=== PATIENT | female | born 1990 | race African-American/Black ===

== ENCOUNTER 2020-04-10 07:00 | Outpatient (CLI) | payer OTHER ==
[2020-04-10 21:18] LABS: TRICHOMONAS VAGINALIS DNA NEGATIVE (NEGATIVE)
== END 2020-04-10 23:59 | disposition home or self-care (01) ==
LOC: LAB.R 07:00
PROVIDERS: ATTEND Obstetrics & Gynecology
DX: Z36.85 Encounter for antenatal screening for Streptococcus B (principal); Z36.89 Encounter for other specified antenatal screening
CPT/HCPCS: 87491; 87591; 87661; 87797

== ENCOUNTER 2020-05-04 18:10 | Inpatient (IN) | payer OTHER ==
[2020-05-04] MEDS ORDERED: LIDOCAINE-MPF 1% 30 ML VIAL ID PRN (18:23)
[2020-05-04] MEDS ORDERED: OXYTOCIN 10 UNIT/ML VIAL IM PRN (18:23)
[2020-05-04] MEDS ORDERED: miSOPROStoL 200 MCG TABLET BC PRN (18:23)
[2020-05-04] MEDS ORDERED: CARBOPROST TROMETHAMINE 250 MCG/ML AMP IM PRN (18:23)
[2020-05-04] MEDS ORDERED: SODIUM CHLORIDE FLUSH 0.9% 10 ML SYRINGE IVP PRN (18:23)
[2020-05-04] MEDS ORDERED: METHYLERGONOVINE 0.2 MG/ML VIAL IM PRN (18:23)
[2020-05-04] MEDS ORDERED: TRANEXAMIC ACID 1,000 MG in SODIUM CHLORIDE 0.9% 100ML 100 ML IV PRN (18:23)
[2020-05-04] MEDS ORDERED: OXYTOCIN/SODIUM CHLORIDE 500 ML IV PRN (18:23)
[2020-05-04 19:38] LABS: BASOPHILS % (AUTO) 0.4 %; EOSINOPHILS # (AUTO) 0.2 10^3/uL (0.0-0.7); EOSINOPHILS % (AUTO) 1.6 %; HGB - HEMOGLOBIN 9.2 g/dL (12.0-16.0); LYMPHOCYTES # (AUTO) 2.7 10^3/uL (1.5-3.5); LYMPHOCYTES % (AUTO) 28.7 %; MEAN CORPUSCULAR HEMOGLOBIN 26.1 pg (27.0-31.0); MEAN CORPUSCULAR HGB CONC 30.6 g/dL (32.0-36.0); MEAN CORPUSCULAR VOLUME 85.3 fL (81.0-99.0); MEAN PLATELET VOLUME 9.7 fL (7.9-10.8); MONOCYTES # (AUTO) 0.5 10^3/uL (0.0-1.0); MONOCYTES % (AUTO) 4.9 %; NEUTROPHILS # (AUTO) 5.9 10^3/uL (1.5-6.6); PLT - PLATELET COUNT 250 10^3/uL (130-450); RED BLOOD COUNT 3.53 10^6/uL (4.20-5.40); RED CELL DISTRIBUTION WIDTH 14.2 % (12.0-15.0); WHITE BLOOD COUNT 9.2 x10^3/uL (4.8-10.8)
--- NOTE | 2020-05-04 19:46 | PREOP HISTORY & PHYSICAL ---
DATE OF SERVICE: 05/04/2020 Physician: Griffin Felix MD IDENTIFICATION: Patient is a 29-year-old G3, P2 female who is currently 39 weeks EGA. She has an EDC of 05/11. She started her OB care with us at 35 weeks; prior to this received her health care at [facility]. She presents for cervical ripening and induction of labor. She has a history of having had a shoulder dystocia with 2 of her infants, which resolved with minimal maneuvers such as suprapubic pressure. She describes these as being easily under 1 minute. She is requesting a vaginal delivery. We discussed the risks of shoulder dystocia, which include those, but are not limited to, difficulty delivery with Erb's palsy and neurologic injury as well as possible . She is aware that these are possibilities. LABORATORY DATA: Patient is AB positive. She is rubella immune. She does have some abnormal antibodies. She is negative for STIs. Her GBS culture is negative. 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 She has had a 50 gram Glucola, which is 150. However, her 3-hour GTT was noted to be within normal limits. PAST MEDICAL HISTORY: Patient denies any diabetic, hypertensive or cardiac disease. SURGICAL HISTORY 1. [place] teeth. 2. Tonsillectomy. ALLERGIES: NONE KNOWN. CURRENT MEDICATIONS 1. MiraLax. 2. vitamins. 3. Iron. HABITS: Patient denies use of alcohol, tobacco, or street or addictive drugs. SOCIAL HISTORY: Patient is . PHYSICAL EXAMINATION GENERAL: Patient is a well-developed, well-nourished, black female. She is in no acute distress at this time. VITAL SIGNS: Her vital signs at admission show a blood pressure of 114/78, heart rate 75, temperature is 37.1, respirations are 16. HEENT: Pupils are equal, round. Extraocular muscles are intact. Thyroid is not palpably enlarged. HEART: Regular rate and rhythm without murmurs. LUNGS: Lung morocho are clear without rales or wheezes. ABDOMEN: Corpulent in nature. Her last exam on the showed a fundal height of 42 cm. She had a cervix that was 2 cm, 20% effaced, and high. Patient had an ultrasound, which showed an infant that was at the 62nd percentile. IMPRESSION 1. A 29-year-old G3, P2 female with a history of 2 mild shoulder dystocias, with an ultrasound that shows an infant at the 62nd percentile. 2. Abnormal antibodies. 3. Planned induction of labor. PLAN: We will administer cervical ripening. We will type and cross for 2 units of blood and have been standing by because of her abnormal antibodies. We will also try to avoid any vacuums at time of delivery. TD: 05/04/2020 19:34 DOMINIC
[2020-05-04] MEDS: miSOPROStoL 100 MCG TABLET BC SCH (20:27)
[2020-05-05] MEDS ORDERED: SODIUM CHLORIDE FLUSH 0.9% 10 ML SYRINGE IVP SCH (01:00)
[2020-05-05] MEDS: LACTATED RINGERS 1,000 ML IV SCH ×2 (02:40→19:00)
--- NOTE | 2020-05-05 09:30 | PROVIDER PROGRESS NOTE ---
Labor Progress Note - Uterine Monitoring Contraction Frequency (min/apart): NONE - Monitoring Heart Rate Baseline: 125 Heart Rate Variability: positive: Moderate (6-25 bmp) Accelerations: positive: Present, 15x15 Decelerations: positive: None Strip Review: positive: Category I - Vaginal Exam Dilation (in cm): 2 Effacement (%): 30% Station: -3 Cervical Position: Posterior - Labor Progress Note Labor Progress Note/Additional Text: Last PM because of an abmormal Ab screen Mispprostal was with held until blood became available. We now have 4 units Crossed and a further 2 being crossed. Pt reacted to 25 of Miso with contractions will restart at 25 .
[2020-05-05] MEDS: miSOPROStoL 100 MCG TABLET BC SCH (09:33)
[2020-05-05] MEDS ORDERED: miSOPROStoL 100 MCG TABLET BC SCH (12:00)
[2020-05-05] MEDS ORDERED: ROPIVACAINE 0.2% 200 MG/100 ML BAG EP ONE (19:00)
[2020-05-05] MEDS ORDERED: OXYTOCIN/SODIUM CHLORIDE 500 ML IV SCH (20:00)
--- NOTE | 2020-05-05 20:00 | PROVIDER PROGRESS NOTE ---
Labor Progress Note - Monitoring Heart Rate Baseline: 142 Heart Rate Variability: positive: Moderate (6-25 bmp) Accelerations: positive: Present, 10x10 (=/32 wks) Decelerations: positive: None Strip Review: positive: Category I - Vaginal Exam Dilation (in cm): 6 Effacement (%): 80 Station: -3 Cervical Position: Posterior - Labor Progress Note Labor Progress Note/Additional Text: Pt great progress with cook. epidural in place improve station with pitocin AROM when in range.
[2020-05-05] MEDS ORDERED: ePHEDrine 50 MG/ML VIAL IVP PRN (20:04)
[2020-05-05] MEDS ORDERED: NALOXONE 0.4 MG/ML VIAL IVP PRN (20:04)
[2020-05-05] MEDS ORDERED: ONDANSETRON 4 MG/2 ML VIAL IVP PRN (20:04)
[2020-05-05] MEDS ORDERED: NALBUPHINE 10 MG/ML AMP IVP PRN (20:04)
[2020-05-05] MEDS ORDERED: METOCLOPRAMIDE 10 MG/2 ML VIAL IVP PRN (20:04)
[2020-05-05] MEDS ORDERED: LACTATED RINGERS 500 ML IV ONE (20:04)
[2020-05-05] MEDS ORDERED: diphenhydrAMINE INJ 50 MG/ML VIAL IVP PRN (20:04)
[2020-05-05] MEDS ORDERED: ROPIVACAINE 0.2% 200 MG/100 ML BAG EP PRN (20:04)
--- NOTE | 2020-05-05 20:08 | ANESTHESIA ---
Pre-Anesthesia VS, & Labs - Diagnosis labor induction - Procedure labor epidural Vital Signs: Temp Pulse Resp BP Pulse Ox 36.9 C 71 20 120/62 100 05/05/20 09:00 05/05/20 09:00 05/05/20 09:00 05/05/20 09:00 05/05/20 09:00 Height 5 ft 4 in Weight (kg) 127.913 kg - NPO Other (clears from now until delivery) - Is Patient ?: Yes - Lab Results Current Lab Results: Laboratory Tests 05/04/20 21:10: Blood Type Recheck AB POSITIVE 05/04/20 19:20: Blood Type AB POSITIVE, Antibody Screen POSITIVE, Antibody Identification Anti-Leb, FERMIN, IgG Specific NEGATIVE, FERMIN, Polyspecific NEGATIVE, FERMIN, C3d Specific Not Reportable, Crossmatch See Detail 05/04/20 19:20: WBC 9.2, RBC 3.53 L, Hgb 9.2 L, Hct 30.1 L, MCV 85.3, MCH 26.1 L , MCHC 30.6 L, RDW 14.2, Plt Count 250, MPV 9.7, Neut # (Auto) 5.9, Lymph # (Auto) 2.7, Powell # (Auto) 0.5, Eos # (Auto) 0.2, Baso # (Auto) 0.0, Absolute Nucleated RBC 0.00, Nucleated RBC % 0.0 Fish Bones: 05/04/20 19:20 Home Medications and Allergies Active Medications Carboprost Tromethamine (Hemabate) 250 mcg IM Q15M PRN PRN Reason: Step 4: Hemorrhage protocol Stop: 05/09/20 18:34 Oxytocin/Sodium Chloride (Pitocin/Sodium Chloride) 500 mls @ 999 mls/hr IV PRN PRN; Protocol PRN Reason: POST- HEMORR PREVENTION Stop: 05/09/20 18:34 Tranexamic Acid 1,000 mg/ (Sodium Chloride) 110 mls @ 660 mls/hr IV .ONCE PRN PRN Reason: EBL >1200mL and within 3hr Stop: 05/09/20 18:34 Lactated Ringer's (Lr) 1,000 mls @ 100 mls/hr IV .Q10H DEBBIE Last Infusion: 05/05/20 09:27 Dose: Infused Documented by: Oxytocin/Sodium Chloride (Pitocin/Sodium Chloride) 500 mls @ 1 mls/hr IV TITR DEBBIE; Protocol Lidocaine HCl (Xylocaine-Mpf 1% Vial) 30 ml ID .ONCE PRN PRN Reason: PERINEAL REPAIR Stop: 05/09/20 18:34 Methylergonovine Maleate (Methergine Inj) 0.2 mg IM .ONCE PRN PRN Reason: Step 2: Hemorrhage protocol Stop: 05/09/20 18:34 Misoprostol (Cytotec) 800 mcg BC .ONCE PRN PRN Reason: Step 3: Hemorrhage protocol Stop: 05/09/20 18:34 Misoprostol (Cytotec) 50 mcg BC Q4H DEBBIE Last Admin: 05/05/20 13:36 Dose: 50 mcg Documented by: Oxytocin (Pitocin) 10 unit IM .ONCE PRN PRN Reason: Step one: If no IV access Stop: 05/09/20 18:34 Sodium Chloride (Normal Saline Flush 0.9%) 10 ml IVP 0100,0900,1700 DEBBIE Sodium Chloride (Normal Saline Flush 0.9%) 10 ml IVP PRN PRN PRN Reason: NEEDED PER PROVIDER ORDERS Allergies/Adverse Reactions: Allergies Allergy/AdvReac Type Severity Reaction Status Date / Time No Known Drug Allergies Allergy Verified 05/04/20 19:21 Anes History & Medical History - Anesthetic History Anesthesia Complications: reports: No previous complications - Medical History Endocrine/Autoimmune: reports: Other (elevated BMI) Smoking Status: Never smoker Exam General: Alert Dental: WNL Mouth Opening: Greater than 4 Fingerbreadths Mallampati classification: II Thyromental Distance: greater than 6 cm Respiratory: Lungs clear Cardiovascular: Regular rate Plan Anesthesia Type: Epidural Consent for Procedure(s) Verified and Reviewed: Yes Code Status: Attempt Resuscitation ASA classification: 2-Mild systemic disease Is this case an emergency?: No
--- NOTE | 2020-05-06 00:48 | PROVIDER PROGRESS NOTE ---
Labor Progress Note - Uterine Monitoring Contraction Frequency (min/apart): 3 Contraction Intensity: positive: Moderate to strong Uterine Resting Tone: positive: Soft - Monitoring Monitor Mode: positive: External ultrasound Heart Rate Baseline: 138 Heart Rate Variability: positive: Moderate (6-25 bmp) Accelerations: positive: Present, 15x15 Decelerations: positive: None - Vaginal Exam Dilation (in cm): 5 Station: Ballotable Cervical Position: Posterior - Labor Progress Note Labor Progress Note/Additional Text: Pt is very frustrated that she didn't deliver on her birthday. Head is not coming down. not safe to rupture membranes. Offered to allow her to sleep the night. Pt wants to pursue.
[2020-05-06] MEDS ORDERED: HYDROCORTISONE 1% CREAM 28 GM TUBE PR PRN (03:30)
[2020-05-06] MEDS ORDERED: oxyCODONE 5 MG TABLET PO PRN (03:30)
[2020-05-06] MEDS ORDERED: WITCH HAZEL/GLYCERIN 1 PAD TOP PRN (03:30)
[2020-05-06] MEDS ORDERED: RHO(D) IMMUNE GLOBULIN 300 MCG SYRINGE IM ONE (03:30)
[2020-05-06] MEDS ORDERED: diphenhydrAMINE 25 MG CAPSULE PO PRN (03:30)
--- NOTE | 2020-05-06 03:44 | DELIVERY NOTE ---
Delivery Note - Labor Labor: positive: Induced by oxytocin - Infant Delivery Method Delivery Method: positive: Spontaneous vaginal delivery - Cervical Ripening Method Cervical Ripening Method: positive: Balloon device, Misoprostil - Presentation Presentation: positive: Vertex, KYLE - right occiput anterior - Nuchal Cord Nuchal Cord: positive: Present (ONE) - Anesthetic Anesthetic Type: - Amniotic Fluid Description Amniotic Fluid Description: positive: Clear (second stage meconium) - Episiotomy Type Episiotomy Type: positive: None - Laceration Laceration: positive: None - [place] : positive: Placed in direct skin contact with mother, Suctioned, Stimulated [place] sex: positive: Male : Apgars 7/9 : 2:40 left shoulder dystocia - Placenta Placenta: positive: Intact, Spontaneous - Estimated Blood Loss Estimated Blood Loss (in cc): 250 - Post Delivery Events Post Delivery Events: positive: No post delivery events - Delivery Comments (Free Text/Narrative) Delivery Comments (Free Text/Narrative): Patient presented for a induction of labor and cervical ripening at 39 weeks secondary to history of sharp mild shoulder dystocia with her first 2 infants. She was explained the risks and benefits. Ultrasound estimated weight at the 62nd percentile. Upon presentation she received measle Prost all 25 vaginal correction orally. At this point because the lab noted an abnormal antibody the cervical ripening was held until the following morning until 4 units of blood could be typed and crossed. A 2 additional units were also set aside. She received 25 mcg of misoprostol at 9:00 and then again another dose at 1:00 of 50 mcg. At roughly A Cook catheter was placed intracervically under direct v isualization and 80 cc of saline was placed in the uterine port and 40 on the vaginal port. This came out at 8:00. The head remained high and so for this reason she was started on Pitocin. Because of labor discomfort an epidural was placed. The cervix showed very slow progress.The membranes spontaneously ruptured at which time the headMatt 130 came down against the cervix and her labor progressed. At 257 she reached complete. Prior to this her cervix was noted to be 8 cm and then 9cm. This was unable to be reduced so we had to wait till she physically reached complete. At 307 she delivered the head Bryn maneuvers were immediately employed. A loose nuchal cord was reduced and following a 2-minute 42nd shoulder dystocia the remainder of the delivered at 310. The was vigorous at this time placed on mom's tummy the cord was allowed to cease pulsating prior to clamping. The infant had Apgars of 7 and 9. The placenta delivered at 317 inspected and noted to be i ntact. There were no lacerations or bleeding. Estimated blood loss was 250 cc.
[2020-05-06] MEDS ORDERED: LACTATED RINGERS 1,000 ML IV SCH (04:00)
[2020-05-06] MEDS: ACETAMINOPHEN 500 MG TABLET PO SCH ×3 (04:27→22:02)
[2020-05-06] MEDS: IBUPROFEN 800 MG TABLET PO SCH ×4 (04:28→22:00)
[2020-05-06] MEDS ORDERED: SIMETHICONE CHEW 80 MG TABLET PO SCH (06:00)
[2020-05-06] MEDS: polyethylene glycoL 3350 17 GM PACKET PO PRN (17:51)
[2020-05-07 08:59] VITALS: BP 118/61
[2020-05-07] MEDS: IBUPROFEN 800 MG TABLET PO SCH ×2 (09:03→15:24)
[2020-05-07] MEDS: ACETAMINOPHEN 500 MG TABLET PO SCH ×2 (09:03→17:29)
--- NOTE | 2020-05-07 09:14 | PROVIDER PROGRESS NOTE ---
Subjective - Prog Note Date Prog Note Date: 05/07/20 Prog Note Time: 09:09 - Subjective Pt reports feeling: Improved (Pain 4/10. Pt notes good apin control. Breast feeding. Planning Vasectomy) Objective - Vital Signs/Intake & Output Reviewed Vital Signs: Yes Vital Signs: Vital Signs x48h Temp Pulse Resp BP Pulse Ox 05/07/20 08:59 37.0 C 60 18 118/61 100 Intake & Output: Intake & Output 05/04/20 05/05/20 05/06/20 05/07/20 23:59 23:59 23:59 23:59 Intake Total 1004.85 3700 Balance 1004.85 3700 - Objective General Appearance: positive: No acute distress, Alert Respiratory: positive: Chest non-tender, No respiratory distress, Breath sounds nml Cardiovascular: positive: Regular rate & rhythm, No murmur, No gallop Abdomen: positive: Non-tender, Mass (U-3) Back: negative: CVA tenderness (R), CVA tenderness (L) Extremities: positive: Calf tenderness, Martin's sign/cords - Lab Results Fish Bones: 05/04/20 19:20 Assessment/Plan - Problem List (1) (spontaneous vaginal delivery) Impression: Post recovering wekk reviewed breast feeding contraception mastitis Discharge Meds Motrin 800 mg Colace 100 mg continue PNV, Iron (2) Shoulder dystocia during labor and delivery Impression: Pt counseled C/S if delivers again. (3) Anemia affecting Impression: Repeat CBC Iron.
--- NOTE | 2020-05-07 09:23 | Discharge Plan ---
Discharge Plan Problem Reviewed?: Yes Disposition: Home, Self Care Condition: Good Diet: Regular Activity Restrictions: Pelvic Rest 65 wks Shower Restrictions: No Driving Restrictions: No No Smoking: If you smoke, Please STOP! Call for help. Follow-up with: BILLIE NAVA ARNP [Primary Care Provider] -
[2020-05-07 09:32] LABS: BASOPHILS # (AUTO) 0.1 10^3/uL (0.0-0.1); BASOPHILS % (AUTO) 0.4 %; EOSINOPHILS # (AUTO) 0.4 10^3/uL (0.0-0.7); EOSINOPHILS % (AUTO) 3.4 %; HGB - HEMOGLOBIN 9.5 g/dL (12.0-16.0); LYMPHOCYTES # (AUTO) 3.2 10^3/uL (1.5-3.5); LYMPHOCYTES % (AUTO) 28.5 %; MEAN CORPUSCULAR HEMOGLOBIN 26.9 pg (27.0-31.0); MEAN CORPUSCULAR HGB CONC 31.6 g/dL (32.0-36.0); MEAN CORPUSCULAR VOLUME 85.3 fL (81.0-99.0); MEAN PLATELET VOLUME 9.4 fL (7.9-10.8); MONOCYTES # (AUTO) 0.6 10^3/uL (0.0-1.0); MONOCYTES % (AUTO) 5.5 %; NEUTROPHILS # (AUTO) 6.9 10^3/uL (1.5-6.6); NEUTROPHILS % (AUTO) 61.6 %; PLT - PLATELET COUNT 255 10^3/uL (130-450); RED BLOOD COUNT 3.53 10^6/uL (4.20-5.40); RED CELL DISTRIBUTION WIDTH 14.2 % (12.0-15.0); WHITE BLOOD COUNT 11.2 x10^3/uL (4.8-10.8)
--- NOTE | 2020-05-07 10:54 | DISCHARGE SUMMARY ---
Physician: Griffin Felix MD DATE OF ADMISSION: 05/04/2020 DATE OF DISCHARGE: 05/07/2020 ADMITTING DIAGNOSES 1. A 29-year-old G3, P2 at 39 weeks' EGA, EDC 05/11/2020. 2. History of shoulder dystocia x2. 3. History of Anti-Renae and Anti-Leb antibodies. 4. Anemia. DISCHARGE DIAGNOSES 1. A 29-year-old G3, P2 at 39 weeks' EGA, EDC 05/11/2020. 2. History of shoulder dystocia x2. 3. History of Anti-Renae and Anti-Leb antibodies. 4. Anemia. 5. Moderate shoulder dystocia. PROCEDURES 1. Type and cross 6 units of blood. 2. Misoprostol cervical ripening. 3. Cook catheter cervical dilatation. 4. Epidural. 5. Spontaneous vaginal delivery. PRESENTING HISTORY: Patient is a 29-year-old G3, P2 who is 39 weeks EGA. Because of the history of 2 previous shoulder dystocias and patient request, it was decided to proceed with induction. She also was noted to have abnormal antibodies for Anti-Renae and Anti-Leb. For this reason, 6 units of blood were typed and crossed upon admission. She had previously had an ultrasound, which showed the to be at the 62nd percentile. LABORATORIES: CBC on admission showed a white count of 9.2; however, hemoglobin was 9.2, hematocrit was 30.1 and platelets were 250. HOSPITAL COURSE: Patient admitted, at which time she received misoprostol. In the interim, she had 6 units of blood typed and crossed because of the abnormal antibody. Next morning, she received another dose of misoprostol. She had a Cook catheter placed, which was removed, at which time she was 4 cm. She continued to progress to complete and, because the was OP, she pushed for a significant amount of time; however, she was able to deliver the . At time of delivery, she was noted to have a nuchal cord x1. She suffered a shoulder dystocia of 2 minutes 40 seconds. However the infant, when delivered, had Apgars of 7 and 9. The infant weighed 8 pounds 7 ounces. Her course has been unremarkable. She is , she is eating a regular diet. She is having a repeat CBC, which is pending at this time. We have discussed the issues of contraception, as well as pain control. She has prescriptions for Motrin and Colace. She is to continue taking her vitamins as well as iron. She will follow up in the clinic in roughly 1-2 weeks. TD: 05/07/2020 09:34 MTDLynda
[2020-05-07] MEDS: polyethylene glycoL 3350 17 GM PACKET PO PRN (17:29)
== END 2020-05-07 17:30 | disposition home or self-care (01) | DRG 807 ==
LOC: WFO 18:10 → FBP 18:15 → WFO 18:22 → FBP 18:23 → OBSVTOIN 05-06 07:29
PROVIDERS: ADMIT Obstetrics & Gynecology; ATTEND Obstetrics & Gynecology
PROC: 10E0XZZ Delivery of Products of Conception, External Approach (ICD-10-PCS; principal; 2020-05-06)
DX: O66.0 Obstructed labor due to shoulder dystocia (principal); Z37.0 Single live birth; O69.81X0 Labor and delivery complicated by cord around neck, without compression, not applicable or unspecified; Z3A.39 39 weeks gestation of pregnancy; O99.02 Anemia complicating childbirth; D64.9 Anemia, unspecified; O26.893 Other specified pregnancy related conditions, third trimester; R76.0 Raised antibody titer
CPT/HCPCS: 36415; 85025; 86850; 86870; 86880; 86900; 86901; 86922; 96361; 96365; 96366; A9270; J7120; 86920

== ENCOUNTER 2020-12-17 17:40 | Emergency (ER) | payer OTHER ==
[2020-12-17 18:06] VITALS: BP 139/73
--- NOTE | 2020-12-17 18:34 | XRAY Report ---
PROCEDURE: Knee 4 View RT INDICATIONS: injury TECHNIQUE: 4 views of the right knee(s) were acquired. COMPARISON: None. FINDINGS: Bones: No fractures or dislocations. No suspicious bony lesions. Soft tissues: No joint effusion. No suspicious soft tissue calcifications. IMPRESSION: 1. No evidence acute bony abnormality of the right knee. Comment: If suspect internal derangement, nonemergent right knee MRI may be helpful. Reviewed by: Mckniley Ramon MD on 12/17/2020 6:33 PM PDT Approved by: Mckinley Ramon MD on 12/17/2020 6:33 PM PDT Station ID: [id number]
--- NOTE | 2020-12-17 19:54 | ED Physician Documentation ---
PD HPI LOWER EXT INJURY - Stated complaint Stated Complaint: RIGHT KNEE PX - Chief complaint Chief Complaint: Trauma Ext - History obtained from History obtained from: Patient - History of Present Illness PD HPI LOW EXT INJURY LOCATION: Right, Knee Type of injury: Twist (She states she was kneeling on the bed with her right knee and left foot on the floor and went to bring her knee down to stand and felt onset of pain in the anterior infrapatellar area. Hurts to stand and walk. No click or pop. No giving out. Tender anteriorly.) Where injury occurred: Home Timing - onset: How many hours ago (1-2), Today Timing - details: Abrupt onset, Still present Worsened by: Moving, Palpating (anerior tibial prominence anteriorly.) Associated symptoms: No: Weakness, Numbness, Swelling, Discolored (no red) Similar symptoms before: Has not had sx before Recently seen: Not recently seen Review of Systems Constitutional: denies: Fever, Chills Skin: denies: Rash, Lesions Neurologic: denies: Focal weakness, Numbness PD PAST MEDICAL HISTORY - Past Medical History Endocrine/Autoimmune: Other (elevated BMI) - Present Medications Home Medications: Ambulatory Orders Medication Instructions Recorded Confirmed Ibuprofen [Motrin] 600 mg PO TID PRN #20 tab 12/17/20 Norethindrone 0.35 mg PO DAILY 12/17/20 12/17/20 - Allergies Allergies/Adverse Reactions: Allergies Allergy/AdvReac Type Severity Reaction Status Date / Time No Known Drug Allergies Allergy Verified 12/17/20 18:01 - Social History Smoking Status: Never smoker PD ED PE NORMAL - Vitals Vital signs reviewed: Yes - General General: Alert and oriented X 3, Well developed/nourished, Other (appears in pain with ROM of the knee, particularly extension and with moderate flexion. Pain in infrapatellar area. ) - Derm Derm: Normal color, Warm and dry, No rash - Extremities Extremities: No edema, No calf tenderness / cord. No: No tenderness to palpate (tender at infrapatellar area/ anterior tibial prominence proximally. No redness nor effusion. No skin sores. No effusion of the joint. Negative cruciate and collateral testing. ) - Neuro Neuro: Alert and oriented X 3, No motor deficit, Normal speech Results - Vitals Vitals: Vital Signs - 24 hr 12/17/20 18:02 Temperature 36.7 C Heart Rate 65 Respiratory 120 H Rate Blood Pressure 139/73 H O2 Saturation 99 Oxygen O2 Source Room air - Rads (name of study) right knee Radiology: Prelim report reviewed (no acute bony process), See rad report PD MEDICAL DECISION MAKING - ED course Complexity details: re-evaluated patient (felt worse with knee immobilizer strai ght, but better with hinged (slight flex and strapping does not hit that area). ), considered differential (tender at proximal tibial tubercle, from twist/extension of knee, hurts for extension of knee. seems c/w patellar tendonitis acutely. ), d/w patient Departure - Departure Clinical Impression: Strain of right patellar tendon Qualifiers: Encounter type: initial encounter Qualified Code(s): S86.811A - Strain of other muscle(s) and tendon(s) at lower leg level, right leg, initial encounter Condition: Stable Record reviewed to determine appropriate education?: Yes Instructions: ED Sprain Knee Follow-Up: BILLIE NAVA ARNP [Primary Care Provider] - Manolo Sarkar MD [Provider Admit Priv/Credential] - Prescriptions: Ibuprofen [Motrin] 600 mg PO TID PRN #20 tab PRN Reason: Pain Comments: This seems most likely a strain of the patellar tendon insertion. I would anticipate improvement over several days and resolution by 5 to 7 days. Use the knee brace when up and around to reduce the stress on the patellar tendon. Use some anti-inflammatory such as ibuprofen 3 times a day for a week with food. Add Tylenol every 4-6 hours if needed for pain. Recheck with your primary or orthopedics if not fully improved in a week.
[2020-12-17] MEDS ORDERED: ACETAMINOPHEN 325 MG TABLET PO STA (20:11)
[2020-12-17] MEDS ORDERED: IBUPROFEN 600 MG TABLET PO STA (20:11)
[2020-12-17] MEDS ORDERED: HYDROcod/ACETAM 5/325 MG TABLET PO STA (20:51)
--- OUTSIDE RECORDS SUMMARY | 2020-12-24 00:15 | EXTERNAL MEDICAL SUMMARY RPT | Continuity of Care Document ---
:1990 Demographics Phone Unavailable Preferred Language Unknown Marital Status Unknown Buddhism Affiliation Unknown Race Unknown Ethnic Group Unknown Author Organization [facility] Address [address] [phone] Phone Social History date description facility [phone]
== END 2020-12-17 20:45 | disposition home or self-care (01) ==
LOC: ED 17:40
DX: S86.811A Strain of other muscle(s) and tendon(s) at lower leg level, right leg, initial encounter (principal); X50.1XXA Overexertion from prolonged static or awkward postures, initial encounter; Y93.89 Activity, other specified; Y92.003 Bedroom of unspecified non-institutional (private) residence as the place of occurrence of the external cause
CPT/HCPCS: 73564; 99283; A9270

== ENCOUNTER 2022-04-02 17:00 | Emergency (ER) | payer OTHER ==
[2022-04-02] MEDS ORDERED: predniSONE 20 MG TABLET PO STA (19:33)
--- NOTE | 2022-04-02 19:35 | ED Physician Documentation ---
PD HPI SKIN - Stated complaint Stated Complaint: RASH/ITCH/FEVER ON SITES - Chief complaint Chief Complaint: Wound - History obtained from History obtained from: Patient - Additional information Additional information: The last month or 2 she has developed an increasing rash that is diffuse and involves the face, arms, trunk, groin and legs. It is quite itchy. She was seen in the office prescribed hydroxyzine and [id number]. She continues to worsen. Review of Systems Constitutional: reports: Reviewed and negative Nose: reports: Reviewed and negative Throat: reports: Reviewed and negative Cardiac: reports: Reviewed and negative PD PAST MEDICAL HISTORY - Past Medical History Endocrine/Autoimmune: Other (elevated BMI) - Past Surgical History Past Surgical History: No - Present Medications Home Medications: Ambulatory Orders Medication Instructions Recorded Confirmed Ibuprofen [Motrin] 600 mg PO TID PRN #20 tab 12/17/20 Norethindrone 0.35 mg PO DAILY 12/17/20 12/17/20 predniSONE [Deltasone] 20 mg PO [id number] #21 tab 04/02/22 - Allergies Allergies/Adverse Reactions: Allergies Allergy/AdvReac Type Severity Reaction Status Date / Time No Known Drug Allergies Allergy Verified 04/02/22 17:13 - Social History Does the pt smoke?: No Smoking Status: Never smoker Does the pt drink ETOH?: No Does the pt have substance abuse?: No - Immunizations Immunizations are current?: Yes - POLST Patient has POLST: No PD ED PE NORMAL - Vitals Vital signs reviewed: Yes - General General: Alert and oriented X 3, No acute distress - Derm Derm: Other (She has diffuse plaque rash mostly on the extensor surfaces of the arm but a bit on the face and trunk as well. It is quite severe.) - Neuro Neuro: Alert and oriented X 3, Normal speech Results - Vitals Vitals: Vital Signs - 24 hr 04/02/22 04/02/22 17:07 19:51 Temperature 36.3 C L 36.9 C Heart Rate 73 62 Respiratory 16 16 Rate Blood Pressure 127/72 122/44 L O2 Saturation 100 100 Oxygen O2 Source Room air PD MEDICAL DECISION MAKING - ED course ED course: 31-year-old woman with terrible rash that could be bad eczema or psoriasis and is started on oral steroids pending follow-up with dermatology. Departure - Departure Disposition: 01 Home, Self Care Clinical Impression: Eczema Qualifiers: Eczema type: flexural Qualified Code(s): L20.82 - Flexural eczema Condition: Good Record reviewed to determine appropriate education?: Yes Instructions: ED Dermatitis Atopic Eczema Prescriptions: predniSONE [Deltasone] 20 mg PO [id number] #21 tab Comments: As discussed, this is most consistent with either severe psoriasis or eczema. You have an appoint with dermatology which is good but I would like it to be sooner, you can call the number below for an appointment with dermatology nurse practitioner to see if she can get you in sooner. Return for new or worsening symptoms. Cris Newell [facility] [phone] Discharge Date/Time: 04/02/22 20:01
[2022-04-02 19:52] VITALS: BP 122/44
== END 2022-04-02 20:01 | disposition home or self-care (01) ==
LOC: ED 17:00
DX: L20.82 Flexural eczema (principal)
CPT/HCPCS: 99282; 99283; J7512